=== PATIENT | male | born 1950 | race Caucasian/White ===

== ENCOUNTER 2016-12-31 09:42 | Emergency (ER) | payer OTHER ==
[2016-12-31 09:46] VITALS: BP 127/77; PULSE 86; TEMP 97.9; BMI 28.2
[2016-12-31 10:16] VITALS: O2SAT 98
--- NOTE | 2016-12-31 10:29 | ED PDOC ---
Lower Extremity Pain/Injury Time Seen by Provider: 12/31/16 10:11 Chief Complaint (Nursing): Lower Extremity Problem/Injury History Per: Patient Additional Complaint(s): Pt is a 66 yr old male c/o joint pain in multiple joints throughout his body for past 1.5 months. Pt was seen by his PMD and also by a pain management doctor and was told he has arthritis. Pt w/ pain to bilateral knees, ankles, elbows and wrists. Similar joint pain about 2 yrs ago to hands. Meds he is taking is not helping. PMD: Dr. Nichole . Past Medical History Reviewed: Historical Data, Nursing Documentation, Vital Signs Vital Signs: Last Vital Signs Temp 97.9 F 12/31/16 09:45 Pulse 86 12/31/16 09:45 Resp BP 127/77 12/31/16 09:45 Pulse Ox 98 12/31/16 10:01 - Medical History PMH: Arthritis, HTN - Family History Family History: States: CAD, Diabetes - Social History Current smoker - smoking cessation education provided: No Ex-Smoker (has not smoked in the last 12 months): No Alcohol: None Drugs: Denies - Immunization History Hx Tetanus Toxoid Vaccination: No Hx Influenza Vaccination: No Hx Pneumococcal Vaccination: No - Home Medications Home Medications: Ambulatory Orders Medication Instructions Recorded Methylprednisolone [Medrol Dose 4 mg PO DAILY #21 mg 12/31/16 Pack (21 tabs)] - Allergies Allergies/Adverse Reactions: Allergies Allergy/AdvReac Type Severity Reaction Status Date / Time No Known Allergies Allergy Verified 12/31/16 10:00 Review of Systems ROS Statement: Except As Marked, All Systems Reviewed And Found Negative Constitutional: Negative for: Fever Cardiovascular: Negative for: Chest Pain Respiratory: Negative for: Shortness of Breath Gastrointestinal: Negative for: Abdominal Pain Musculoskeletal: Positive for: Shoulder Pain, Arm Pain, Hand Pain, Leg Pain Skin: Negative for: Rash Physical Exam - Reviewed Nursing Documentation Reviewed: Yes Vital Signs Reviewed: Yes - Physical Exam Appears: Positive for: Well, Non-toxic, No Acute Distress Head Exam: Positive for: ATRAUMATIC, NORMAL INSPECTION, NORMOCEPHALIC Skin: Positive for: Normal Color, Warm, DRY Eye Exam: Positive for: EOMI, Normal appearance, PERRL ENT: Positive for: Normal ENT Inspection Neck: Positive for: Normal, Painless ROM Cardiovascular/Chest: Positive for: Regular Rate, Rhythm Respiratory: Positive for: Normal Breath Sounds. Negative for: Rales, Rhonchi, Wheezing Gastrointestinal/Abdominal: Positive for: Normal Exam, Bowel Sounds, Soft Back: Positive for: Normal Inspection Extremity: Positive for: Tenderness (to right ankle with some swelling but no warmth/redness; bilat knee tenderness and ankle tenderness) Neurologic/Psych: Positive for: Alert, Oriented. Negative for: Motor/Sensory Deficits - ECG O2 Sat by Pulse Oximetry: 98 Medical Decision Making Medical Decision Making: Initial Impression: Arthritis Initial plan: d/c on medrol dosepak and refer to rheumatology. Disposition - Clinical Impression Clinical Impression: Arthritis - Patient ED Disposition Is Patient to be Admitted: No - Disposition Referrals: Josiah Felder MD [Staff Provider] - Disposition: Routine/Home Disposition Time: 10:27 Condition: FAIR Additional Instructions: Mr. Preciado, thank you for letting us take care of you today. Return to the ER if your symptoms worsen, or if any problems. YOU NEED TO BE SEEN BY A OFFICE MESSENGER HELPER. Please call Dr. Felder's office at the phone number listed below to make an appointment; he is a labor contract analyst. Take the medication listed below as prescribed. Prescriptions: Methylprednisolone [Medrol Dose Pack (21 tabs)] 4 mg PO DAILY #21 mg Instructions: Arthritis (ED) Forms: [facility] [employer] (Uzbek) Print Language: ANGUILLAN - POA Present On Arrival: None
== END 2016-12-31 10:39 | disposition home or self-care (01) ==
LOC: H.ER 09:42
DX: M19.90 Unspecified osteoarthritis, unspecified site (principal); I10 Essential (primary) hypertension